=== PATIENT | male | born 1960 | race Caucasian/White ===

== ENCOUNTER 2017-01-26 08:18 | Emergency (ER) | payer BC ==
[~2017-01-26] VITALS: Ht 182.9 cm; Wt 70.0 kg
[~2017-01-26 08:18] MED LIST: ASPI81TA11 PO; CALC950T2 PO; GABA300C5 PO; MAGN500T2 PO; MULTTAB67 PO; NEXI40CA PO; VIT D
[2017-01-26 08:25] VITALS: BP 137/81; PULSE 82; RESP 16; RESP 20; TEMP 97.8; O2SAT 100
[2017-01-26] MEDS ORDERED: [UNRECOGNIZED DRUG - CODE] PO (08:38)
--- NOTE | 2017-01-26 08:42 | PD ---
HPI Chief Complaint: Chest Pain Time Seen by Provider: 08:32 Travel History International Travel<30 days: No Contact w/Intl Traveler<30days: No Traveled to known affect area: No History of Present Illness HPI This patient complains of chest pain. Location is left lower chest. Duration is 30 minutes. He was seated and not exerting in any way and just developed acute onset of pain. Feels like a dull aching pain. Denies hemoptysis or productive cough or fever or injury. No alleviating factors. There are no exacerbating factors. Severity is moderate. He reports history of spontaneous pneumothorax as a teenager. He does not smoke. He denies documented cardiac disease. PFSH Past Medical History GERD: Yes Triglycerides - High: Yes Past Surgical History Thoracic Surgery: Yes (SPONTANOUS PNUMOS) Tonsillectomy: Yes Other Surgery: Yes (VOCAL CORD NODUAL REMOVAL X2 ) Social History Alcohol Use: No Tobacco Use: No Substance Use: No Allergies-Medications (Allergen,Severity, Reaction): Coded Allergies: cephalexin (Unverified Allergy, Severe, Rash, 01/26/17) Reported Meds & Prescriptions Reported Meds & Active Scripts Active Reported Vitamin B-12 (Cyanocobalamin (Vitamin B-12)) 1,000 Mcg/Ml Drops Unknown Dose PO DAILY Gabapentin 300 Mg Cap 300 Mg PO TID Multiple Vitamin 1 Tab 1 Tab PO DAILY Nexium (Esomeprazole DR) 40 Mg Capdr 40 Mg PO DAILY Review of Systems General / Constitutional: No: Fever Eyes: No: Visual changes HENT: No: Headaches Cardiovascular: Positive: Chest Pain or Discomfort Respiratory: No: Shortness of Breath Gastrointestinal: No: Abdominal Pain Genitourinary: No: Dysuria Musculoskeletal: No: Pain Skin: No Rash Neurologic: No: Weakness Psychiatric: No: Depression Endocrine: No: Polydipsia Hematologic/Lymphatic: No: Easy Bruising Physical Exam Narrative GENERAL: Well-nourished, well-developed patient with left lower chest pain. SKIN: Focused skin assessment reveals no rash and nodules. Skin is Warm and dry. HEAD: Atraumatic. Normocephalic. EYES: Pupils equal and round. No scleral icterus. No injection or drainage. ENT: No nasal bleeding or discharge. Mucous membranes pink and moist. NECK: Trachea midline. No JVD. CARDIOVASCULAR: Regular rate and rhythm. No murmur appreciated. RESPIRATORY: No accessory muscle use. Clear to auscultation. Breath sounds equal bilaterally. GASTROINTESTINAL: Abdomen soft, non-tender, nondistended. Hepatic and splenic margins not palpable. MUSCULOSKELETAL: No obvious deformities. No clubbing. No cyanosis. No edema. No obvious chest wall tenderness or bruising NEUROLOGICAL: Awake and alert. No obvious cranial nerve deficits. Motor grossly within normal limits. Normal speech. PSYCHIATRIC: Appropriate mood and affect; insight and judgment normal. Data Data Last Documented VS Vital Signs Date Time Temp Pulse Resp B/P (MAP) Pulse Ox O2 Delivery O2 Flow Rate FiO2 01/26/17 10:33 70 16 106/68 (81) 98 Room Air 01/26/17 08:25 97.8 Orders Orders Electrocardiogram (01/26/17 08:36) Basic Metabolic Panel (Bmp) (01/26/17 08:36) Ckmb (Isoenzyme) Profile (01/26/17 08:36) Complete Blood Count With Diff (01/26/17 08:36) Prothrombin Time / Inr (Pt) (01/26/17 08:36) Act Partial Throm Time (Ptt) (01/26/17 08:36) Troponin I (01/26/17 08:36) Chest, Single Ap (01/26/17 08:36) Ecg Monitoring (01/26/17 08:36) Iv Access Insert/Monitor (01/26/17 08:36) Oximetry (01/26/17 08:36) Sodium Chloride 0.9% Flush (Ns Flush) (01/26/17 08:45) D-Dimer (01/26/17 08:36) Labs Laboratory Tests Test 01/26/17 08:25 White Blood Count 3.4 TH/MM3 Red Blood Count 5.20 MIL/MM3 Hemoglobin 14.8 GM/DL Hematocrit 45.1 % Mean Corpuscular Volume 86.7 FL Mean Corpuscular Hemoglobin 28.4 PG Mean Corpuscular Hemoglobin Concent 32.7 % Red Cell Distribution Width 12.8 % Platelet Count 166 TH/MM3 Mean Platelet Volume 8.6 FL Neutrophils (%) (Auto) 53.5 % Lymphocytes (%) (Auto) 35.3 % Monocytes (%) (Auto) 9.2 % Eosinophils (%) (Auto) 1.3 % Basophils (%) (Auto) 0.7 % Neutrophils # (Auto) 1.9 TH/MM3 Lymphocytes # (Auto) 1.2 TH/MM3 Monocytes # (Auto) 0.3 TH/MM3 Eosinophils # (Auto) 0.0 TH/MM3 Basophils # (Auto) 0.0 TH/MM3 CBC Comment DIFF FINAL Differential Comment Prothrombin Time 10.7 SEC Prothromb Time International Ratio 1.0 RATIO Activated Partial Thromboplast Time 27.4 SEC D-Dimer Quantitative (PE/DVT) LESS THAN 0.19 MG/L FEU Blood Urea Nitrogen 13 MG/DL Creatinine 0.75 MG/DL Random Glucose 134 MG/DL Calcium Level 9.2 MG/DL Sodium Level 139 MEQ/L Potassium Level 3.8 MEQ/L Chloride Level 103 MEQ/L Carbon Dioxide Level 29.2 MEQ/L Anion Gap 7 MEQ/L Estimat Glomerular Filtration Rate 107 ML/MIN Total Creatine Kinase 92 U/L Troponin I LESS THAN 0.02 NG/ML MDM Medical Decision Making Medical Screen Exam Complete: Yes Emergency Medical Condition: Yes Medical Record Reviewed: Yes Differential Diagnosis Differential diagnosis includes CT, angina, pericarditis, pleurisy, GERD, anxiety, pneumothorax Narrative Course I have reviewed the patient's electronic medical record. Patient has visits for back pain issues IV placed I reviewed the EKG which is sinus rhythm without ST elevation or ectopy I reviewed the chest x-ray which is normal Extended cardiac monitoring shows sinus rhythm without ectopy CBC is normal Metabolic profile is normal CK is normal Troponin is normal Coagulation studies are normal D-dimer 0.19, ruling out PE in this low risk patient who examined her and has excellent saturation and no tachycardia or shortness of breath I reviewed in detail with his occupational health nurse supervisor Dr. Luke barnard. He confirms he had an abnormal stress test 3 weeks ago. He does not recommend further coronary testing at this time. He will see him in the office in close follow-up however. I reviewed in detail with the patient looks clinically stable and comfortable at this time. He might have some degree of pleurisy or musculoskeletal chest pain Diagnosis Primary Impression: Chest pain in adult Additional Instructions: The patient was advised to follow up with their physician and return if they worsen. Med/Other Pt SpecificInfo: Other Disposition: 01 DISCHARGE HOME Condition: Stable Rehan Cortes MD Jan 26, 2017 08:41
[2017-01-26] MEDS ORDERED: SODIUM CHLORIDE 0.9% FLUSH 10 ML FLUSH IVF PRN (08:45)
[2017-01-26 08:48] LABS: AUTOMATED NEUTROPHIL # 1.9 TH/MM3 (1.8-7.7); BASOPHIL % 0.7 % (0.0-2.0); EOSINOPHIL % 1.3 % (0.0-4.0); HEMATOCRIT 45.1 % (39.0-51.0); HEMO FLAGS DIFF FINAL; LYMPH % 35.3 % (9.0-44.0); LYMPHOCYTE # 1.2 TH/MM3 (1.0-4.8); MEAN CELL VOLUME 86.7 FL (80.0-100.0); MEAN CORPUSCULAR HEMOGLOBIN 28.4 PG (27.0-34.0); MEAN CORPUSCULAR HGB CONC 32.7 % (32.0-36.0); MONO % 9.2 % (0.0-8.0); NEUT % 53.5 % (16.0-70.0); PLATELET COUNT 166 TH/MM3 (150-450); RED CELL DISTRIBUTION WIDTH 12.8 % (11.6-17.2); WHITE BLOOD COUNT 3.4 TH/MM3 (4.0-11.0)
[2017-01-26 08:56] LABS: CHLORIDE 103 MEQ/L (98-107); POTASSIUM 3.8 MEQ/L (3.5-5.1); SODIUM (NA) 139 MEQ/L (136-145)
[2017-01-26 09:01] LABS: ANION GAP 7 MEQ/L (5-15); BICARBONATE 29.2 MEQ/L (21.0-32.0); BLOOD UREA NITROGEN 13 MG/DL (7-18)
[2017-01-26 09:04] LABS: GLOMERULAR FILTRATION RATE 107 ML/MIN (>89)
[2017-01-26 09:07] LABS: APTT (PATIENT) 27.4 SEC (24.3-30.1); PROTHROMBIN TIME - PATIENT 10.7 SEC (9.8-11.6)
[2017-01-26 09:09] LABS: CREATINE KINASE 92 U/L (39-308)
[2017-01-26 09:27] VITALS: BP 108/68; PULSE 68; RESP 18; O2SAT 99
--- NOTE | 2017-01-26 09:44 | RADRPT ---
EXAM DATE/TIME: 01/26/2017 09:03 [facility] COMPARISON: SPINE LUMBAR AP ONLY, October 14, 2016, 9:15. INDICATIONS : Left lower chest pain. MEDICAL HISTORY : None. SURGICAL HISTORY : None. ENCOUNTER: Initial ACUITY: 1 day PAIN SCORE: 7/10 LOCATION: Left lower chest FINDINGS: There are small pleural sutures in the right lung apex. The lungs are otherwise clear. The heart is n ormal in size. The mediastinal contours are within normal limits. No pneumothorax is identified. The visualized osseous structures are grossly intact. CONCLUSION: 1. No acute cardiopulmonary findings. Miguel Cristina MD on January 26, 2017 at 9:42 Board Certified Radiologist. This report was verified electronically.
[2017-01-26 10:33] VITALS: BP 106/68; PULSE 70; RESP 16; O2SAT 98
--- NOTE | 2017-01-27 15:45 | EKG ---
Date Performed: 01/26/2017 Time Performed: 08:21:37 PTAGE: 56 years EKG: Sinus rhythm NORMAL ECG Compared to prior tracing no significant change DOCTOR: Satnam Carmona Interpretating Date/Time 01/27/2017 15:44:03
== END 2017-01-26 11:01 | disposition home or self-care (01) ==
LOC: PHED 08:18
DX: R07.9 Chest pain, unspecified (principal); E78.1 Pure hyperglyceridemia; Z87.19 Personal history of other diseases of the digestive system
CPT/HCPCS: 71010; 80048; 82550; 84484; 85025; 85379; 85610; 85730; 93005; 99285